=== PATIENT | female | born 1990 | race Caucasian/White ===

== ENCOUNTER 2018-03-18 11:49 | Emergency (ER) | payer MEDICAID ==
--- NOTE | 2018-03-18 12:00 | ED Physician Documentation ---
PD HPI UPPER EXT INJURY - Stated complaint Stated Complaint: HAND LAC - Chief complaint Chief Complaint: Laceration - History obtained from History obtained from: Patient - History of Present Illness Location: Left, Hand Type of injury: Fall (she tripped and fell and struck hand onto wood, with laceration of the thenar area.) Where injury occurred: Home Timing - onset: Today Timing - details: Abrupt onset Associated symptoms: No: Weakness, Numbness Review of Systems : reports: Dysuria (today) PD PAST MEDICAL HISTORY - Past Medical History Cardiovascular: None Respiratory: None Neuro: None Endocrine/Autoimmune: None - Present Medications Home Medications: Ambulatory Orders Medication Instructions Recorded Confirmed Norgestimate-Ethinyl Estradiol 03/18/18 [Stokes-Linyah 28 Tablet] Sulfamethox/Trimeth 800/160 1 each PO BID #12 tablet 03/18/18 [Bactrim Ds 800/160] - Allergies Allergies/Adverse Reactions: Allergies Allergy/AdvReac Type Severity Reaction Status Date / Time No Known Drug Allergies Allergy Verified 03/18/18 12:00 PD ED PE NORMAL - Vitals Vital signs reviewed: Yes - General General: Alert and oriented X 3, No acute distress, Well developed/nourished - Derm Derm: Normal color, Warm and dry - Extremities Extremities: Other (The left thenar eminence with a 1.8 cm laceration which extends down to the fatty tissue in the thenar muscle is visible but does not appear injured. There are no foreign body seen. She has range of motion of the thumb including abduction and flexion and states it hurts with abduction but is still able to do it. She has normal sensation in the thumb.) - Neuro Neuro: No motor deficit, No sensory deficit Results - Vitals Vitals: Vital Signs - 24 hr 03/18/18 03/18/18 11:57 12:45 Temperature 36.3 C L Heart Rate 59 L 78 Respiratory 16 16 Rate Blood Pressure 116/81 H 112/78 O2 Saturation 100 Oxygen O2 Source Room air - Labs Labs: Laboratory Tests 03/18/18 12:18 Urine Color YELLOW Urine Clarity CLOUDY Urine pH 8.5 H Ur Specific [place] 1.015 Urine Protein TRACE Urine Glucose (UA) NEGATIVE Urine Ketones NEGATIVE Urine Occult Blood LARGE H Urine Nitrite POSITIVE H Urine Bilirubin NEGATIVE Urine Urobilinogen 0.2 (NORMAL) Ur Leukocyte Esterase SMALL H Urine RBC TNTC H Urine WBC >25 H Ur Squamous Epith Cells FEW Squamous Urine Bacteria Moderate H Ur Microscopic Review INDICATED Urine Culture Comments INDICATED Procedures - Laceration (location) left thenar area Length in cm: 1.8 Wound type: Linear, Into subcut fat, Into muscle (just visible muscle, but seems intact with abduction and flexion.), Clean Neurovascular status: Sensory intact, Motor intact, Vascular intact Tendon involvement: No: Tendon Injury Anesthesia: Lidocaine 1% with epi Wound Preparation: Irrigated copiously NS Skin layer closure: Nylon, Interrupted, Size #-0 - enter number (4), Sutures - enter # (6) Other: Patient tolerated well, No complications, Neurovascular intact, Dressing applied, Tetanus UTD Complexity: Simple PD MEDICAL DECISION MAKING - ED course Complexity details: considered differential, d/w patient Departure - Departure Disposition: 01 Home, Self Care Clinical Impression: Hand laceration Qualifiers: Encounter type: initial encounter Foreign body presence: without foreign body Laterality: left Qualified Code(s): S61.412A - Laceration without foreign body of left hand, initial encounter UTI (urinary tract infection) Qualifiers: Urinary tract infection type: acute cystitis Hematuria presence: without hematuria Qualified Code(s): N30.00 - Acute cystitis without hematuria Condition: Stable Record reviewed to determine appropriate education?: Yes Instructions: ED Laceration Hand, ED UTI Cystitis Female Prescriptions: Sulfamethox/Trimeth 800/160 [Bactrim Ds 800/160] 1 each PO BID #12 tablet Comments: It is okay to wash and shower. Clean off the wound twice a day with soap and water, or peroxide and water. Apply some antibiotic ointment to it to keep it moist. Also to watch for signs of infection such as purulence, redness or increasing pain. Return to your primary care or the ER at the specified time for suture removal. Suture removal 8-10 days. You do have a bladder infection by the urine test and take Bactrim twice daily for 6 days. Tylenol or ibuprofen if needed for pain. You can use [id number] phenazopyridine for the discomfort of urination. This should improve over the next couple of days. Discharge Date/Time: 03/18/18 12:45
[2018-03-18 12:29] LABS: BILIRUBIN,URINE NEGATIVE (NEGATIVE); GLUCOSE, URINE (UA) NEGATIVE (NEGATIVE); KETONES,URINE (UA) NEGATIVE (NEGATIVE); LEUKOCYTE ESTERASE, URINE SMALL (NEGATIVE); NITRITE,URINE POSITIVE (NEGATIVE); OCCULT BLOOD,URINE LARGE (NEGATIVE); PH,URINE 8.5 PH (5.0-7.5); PROTEIN,URINE TRACE mg/dL (NEGATIVE); UROBILINOGEN,URINE 0.2 (NORMAL) E.U./dL (NORMAL)
[2018-03-18] MEDS ORDERED: BACITRACIN OINT TOP ONE (12:30)
[2018-03-18 12:33] LABS: CLARITY,URINE CLOUDY (CLEAR)
[2018-03-18] MEDS ORDERED: SULFAMETH/TRIMETH DS 800/160 MG TABLET PO STA (12:36)
[2018-03-18 12:48] VITALS: BP 112/78
[2018-03-18 12:49] LABS: BACTERIA,URINE Moderate /HPF (None Seen); RBC,URINE TNTC /HPF (0-5); SQUAMOUS EPITHELIAL CELL,UR FEW Squamous (<= Few)
== END 2018-03-18 12:45 | disposition home or self-care (01) ==
LOC: ED 11:49
DX: S61.412A Laceration without foreign body of left hand, initial encounter (principal); W01.10XA Fall on same level from slipping, tripping and stumbling with subsequent striking against unspecified object, initial encounter; Y92.009 Unspecified place in unspecified non-institutional (private) residence as the place of occurrence of the external cause; N30.00 Acute cystitis without hematuria
CPT/HCPCS: 12001; 81001; 87086; 87181; 99283; A9270; 81003